=== PATIENT | female | born 1985 | race African-American/Black ===

== ENCOUNTER 2016-12-12 18:01 | Emergency (ER) | payer BC | END 2016-12-12 21:15 | disposition home or self-care (01) | LOC: ERS 18:01 | DX: I10 Essential (primary) hypertension (principal); N93.9 Abnormal uterine and vaginal bleeding, unspecified | CPT/HCPCS: 99283 ==

== ENCOUNTER 2017-07-14 18:36 | Emergency (ER) | payer BC | END 2017-07-14 20:02 | disposition home or self-care (01) | LOC: ERS 18:36 | DX: R03.0 Elevated blood-pressure reading, without diagnosis of hypertension (principal) | CPT/HCPCS: 99283 ==

== ENCOUNTER 2017-07-23 12:23 | Outpatient (CLI) | payer BC | END 2017-07-23 12:24 | disposition home or self-care (01) | LOC: BICMRI 12:23 | PROVIDERS: ATTEND Student in an Organized Health Care Education/Training Program | DX: R79.89 Other specified abnormal findings of blood chemistry (principal); G93.5 Compression of brain; D35.2 Benign neoplasm of pituitary gland; E23.6 Other disorders of pituitary gland | CPT/HCPCS: 70553 ==

== ENCOUNTER 2018-02-23 14:31 | Outpatient (CLI) | payer BC ==
[~2018-02-23 14:31] MED LIST: Gadobenate Dimeglumine 529 MG/1 ML (20ML VIAL) ONE
--- NOTE | 2018-02-23 16:00 | MRI ---
BRAIN MRI WITHOUT AND WITHOUT 02/23/18 INDICATION: Pituitary tumor. COMPARISON: No prior brain MRI imaging available for comparison. FINDINGS: There is normal sized ventricular system. No significant signal abnormalities of the brain parenchyma . There is no mass effect or midline shift. Dynamic postcontrast imaging of the pituitary gland revea ls homogeneous enhancement, without evidence of a small hypoattenuating pituitary lesion to indicate microadenoma. There is no evidence of sellar mass. Pituitary infundibulum demonstrates thin linear mo rphology and is located near the midline. There is no pathologic enhancing intra-axial mass. IMPRESSION: No discrete pituitary mass. POS: [facility]
== END 2018-02-23 14:32 | disposition home or self-care (01) ==
LOC: TBSIIMAG 14:31
PROVIDERS: ATTEND Neurological Surgery
DX: D49.7 Neoplasm of unspecified behavior of endocrine glands and other parts of nervous system (principal)
CPT/HCPCS: 70553; A9579

== ENCOUNTER 2018-10-15 18:11 | Emergency (ER) | payer BC, SELFPAY ==
[2018-10-15] MEDS ORDERED: Lidocaine 1% (PF) 30 ML VIAL ONE (20:07)
== END 2018-10-15 20:31 | disposition home or self-care (01) ==
LOC: ERS 18:11
DX: L02.31 Cutaneous abscess of buttock (principal); I10 Essential (primary) hypertension; Z79.899 Other long term (current) drug therapy
CPT/HCPCS: 10060; J2001

== ENCOUNTER 2019-11-29 14:48 | Outpatient (CLI) | payer MEDICAID ==
--- NOTE | 2019-11-29 15:26 | ULT ---
Pelvic sonogram transabdominal and transvaginal imaging HISTORY: Pelvic bleeding. FINDINGS: Urinary bladder is incompletely distended. Uterus has a heterogeneous echotexture and is re troverted. It measures up to 8.1 cm. Endometrium 1.1 cm. No focal myometrial mass. No free fluid within the pelvis. Right ovary measures up to 2.9 cm. Partially obscured so that blood flow not confirmed. No masses lindsey dent. Left ovary demonstrates good color and spectral Doppler flow. Dominant follicle 2.4 cm. IMPRESSION : Thickened endometrium 1.3 cm. Retroverted uterus.
== END 2019-11-29 14:49 | disposition home or self-care (01) ==
LOC: BICULT 14:48
PROVIDERS: ATTEND Hospitalist
DX: N93.9 Abnormal uterine and vaginal bleeding, unspecified (principal); R93.89 Abnormal findings on diagnostic imaging of other specified body structures; N85.4 Malposition of uterus
CPT/HCPCS: 76856

== ENCOUNTER 2020-04-09 11:57 | Emergency (ER) | payer MEDICAID ==
--- NOTE | 2020-04-09 13:15 | RAD ---
XR Chest 1 View Portable HISTORY: Chest pain, dizziness COMPARISON: 07/04/2013 FINDINGS: The heart size is normal. The lungs are well expanded without focal areas of consolidation, pneumothorax or pleural effusions. IMPRESSION: No radiographic evidence of acute cardiopulmonary process.
[2020-04-09 13:34] LABS: #Eosinphils 0.1 thou/uL (0.0-0.7); #Lymphocytes 2.2 thou/uL (1.20-3.40); #Monocytes 0.7 thou/uL (0.11-0.59); #Neutrophils 3.4 thou/uL (1.40-6.50); %Basophils 0.3 % (0.0-1.0); %Eosinophils 0.9 % (0.0-10.0); %Lymphocytes 34.4 % (21.0-51.0); %Monocytes 10.8 % (0.0-10.0); %Neutrophils 53.6 % (42.0-75.0); Hemoglobin 10.6 g/dL (12.0-16.0); Mean Corpuscular HGB CONC 32.7 g/dL (32.0-36.0); Mean Corpuscular Hemoglobin 28.7 pg (27.0-31.0); Mean Corpuscular Volume 87.7 fL (78.0-98.0); Mean Platelet Volume 7.3 fL (7.4-10.4); Platelet Count 294 thou/uL (130-400); RBC Distribution Width 16.5 % (11.5-14.5); White Blood Cell (WBC) Count 6.4 thou/uL (4.8-10.8)
[2020-04-09 14:02] LABS: ALT (SGPT) 8 U/L (8-55); AST (SGOT) 11 U/L (5-34); Alkaline Phosphatase 62 U/L (40-110); Anion Gap 14 mmol/L (10-20); BUN (Urea Nitrogen) 16 mg/dL (7.0-18.7); Bilirubin, Total 0.3 mg/dL (0.2-1.2); Calc. Creatinine Clearance 0 mL/min (70-130); Calcium 9.1 mg/dL (7.8-10.44); Carbon Dioxide 21 mmol/L (22-29); Chloride 108 mmol/L (98-107); Globulin 3.5 g/dL (2.4-3.5); Glucose 91 mg/dL (70-105); Potassium 4.2 mmol/L (3.5-5.1); Protein, Total 7.5 g/dL (6.0-8.3); Sodium 139 mmol/L (136-145)
--- NOTE | 2020-04-28 22:50 | EKG ---
Test Reason : Blood Pressure : / mmHG Vent. Rate : 088 BPM Atrial Rate : 088 BPM P-R Int : 150 ms QRS Dur : 076 ms QT Int : 382 ms P-R-T Axes : 050 -08 005 degrees QTc Int : 462 ms Normal sinus rhythm Low voltage QRS Cannot rule out Anterior infarct , age undetermined Abnormal ECG Confirmed by ALICIA CASTILLO, ALAN ([id number]), associate entertainment editor KATI OZUNA ([id number]) on 04/28/2020 10:49:37 PM Referred By: Confirmed By:ALAN VARGAS MD
== END 2020-04-09 14:49 | disposition home or self-care (01) ==
LOC: ERS 11:57
DX: R07.89 Other chest pain (principal); I10 Essential (primary) hypertension; Z79.899 Other long term (current) drug therapy
CPT/HCPCS: 71045; 80053; 83690; 84484; 85025; 93005

== ENCOUNTER 2020-07-21 15:22 | Emergency (ER) | payer MEDICAID ==
[2020-07-21 16:10] LABS: Bilirubin Negative (Negative); Blood, Urine Negative (Negative); Clarity Turbid (Clear); Glucose, Urine (Dipstick) Normal (Negative); Ketone, Urine Negative (Negative); Leukocyte 75 Leu/uL (Negative); Nitrite Negative (Negative); Protein, Urine (Dipstick) 10 mg/dL (Neg-Trace); RBC/HPF 0-3 HPF (0-3); Specific Gravity, Urine 1.032 (1.002-1.036); Squamous Epithelial 21-50 HPF (0-3)
[2020-07-21] MEDS ORDERED: Ketorolac Tromethamine 30 MG/ML VIAL ONE (16:14)
[2020-07-21 16:22] LABS: Bacteria/HPF Rare-Few HPF (None Seen)
[2020-07-21 16:46] LABS: Pregnancy Test - Urine (BHCG) Negative (Negative); Pregu Control Background? CLEAR/WHITE (CLR/WHITE); Pregu Control Bar Appear? YES (CONTROL BAR); Specific Gravity 1.032 (1.002-1.036)
== END 2020-07-21 17:08 | disposition home or self-care (01) ==
LOC: ERS 15:22
DX: N80.9 Endometriosis, unspecified (principal); N94.6 Dysmenorrhea, unspecified; I10 Essential (primary) hypertension; Z79.899 Other long term (current) drug therapy
CPT/HCPCS: 81003; 81015; 81025; 96372; 99284; J1885

== ENCOUNTER 2020-09-25 06:43 | Outpatient (CLI) | payer MEDICAID | END 2020-09-25 06:44 | disposition home or self-care (01) | LOC: BICULT 06:43 | PROVIDERS: ATTEND Obstetrics & Gynecology | DX: R19.04 Left lower quadrant abdominal swelling, mass and lump (principal); N93.9 Abnormal uterine and vaginal bleeding, unspecified; R93.89 Abnormal findings on diagnostic imaging of other specified body structures; N85.4 Malposition of uterus | CPT/HCPCS: 76856 ==